=== PATIENT | male | born 1935 | race Caucasian/White ===

== ENCOUNTER → 2016-09-12 | Outpatient (CLI) | payer MEDICARE, OTHER ==
--- NOTE | 2016-09-12 11:07 | Diagnostic Imaging Report ---
PROCEDURE: CT temporal bones without contrast. TECHNIQUE: Multiple axial high-resolution CT images through the temporal bones were obtained with 2-D reconstruction. AVAILABLE COMPARISONS: None. The mastoids are normally aerated. The external auditory canals are within normal limits. Tympanic membranes are unremarkable. The cochlea are symmetric and within normal limits. No otosclerosis/otospongiosis changes. The internal auditory canals are symmetric without enlargement or erosion. The ossicles are within normal limits. The visualized nasopharynx and orbits are negative. The visualized portion of the brain is negative. IMPRESSION: Negative CT of the temporal bones. Dictated by: Dictated on workstation # [id number]
== END ==
LOC: RAD 10:19
PROVIDERS: ATTEND Otolaryngology Otology & Neurotology
DX: H90.3 Sensorineural hearing loss, bilateral (principal)
CPT/HCPCS: 70480